=== PATIENT | female | born 1950 | race Caucasian/White ===

== ENCOUNTER → 2017-03-28 | Outpatient (CLI) | payer BC ==
[~2017-03-28] MED LIST: ALL180 PO; FLUTICASONE NASAL; LISI-725 PO; OXYC-57 PO; PRAV20TA PO
[2017-03-28 12:29] LABS: CHOLESTEROL/HDL RATIO 3.9
[2017-03-28 14:13] LABS: LYME DISEASE AB IGG NEG (NEG)
[2017-03-28 14:23] LABS: LYME DISEASE AB IGM NEG (NEG)
== END | disposition home or self-care (01) ==
LOC: C.LABBFT 08:01
PROVIDERS: ATTEND Physician Assistant Medical
DX: E78.00 Pure hypercholesterolemia, unspecified (principal); T14.8 Other injury of unspecified body region; W57.XXXA Bitten or stung by nonvenomous insect and other nonvenomous arthropods, initial encounter